=== PATIENT | male | born 1965 | race Caucasian/White ===

== ENCOUNTER → 2016-06-13 | Outpatient (CLI) | payer MEDICAID ==
[~2016-06-13] MED LIST: ADVA500A INH; ALBU6.7H INH; CETI10 PO; EPIN1INJ19; IBUP800T23 PO; IPRASOL INH; PRED1 PO; PRIL20CA9 PO; PRIL40CA PO; SPIRCAP INH; SPIRIVA; VITA1000 PO; ZOVI5CRE3 TOPICAL
--- NOTE | 2016-06-13 17:48 | RADRPT ---
EXAM DATE/TIME: 06/13/2016 13:38 [place] COMPARISON: No previous studies available for comparison. INDICATIONS : Short of breath. MEDICAL HISTORY : Chronic obstructive pulmonary disease. SURGICAL HISTORY : None. ENCOUNTER: Initial ACUITY: >1 year PAIN SCORE: 0/10 LOCATION: Bilateral upper chest FINDINGS: PA and lateral views of the chest demonstrate a normal-sized cardiac silhouette. There is no effusion , consolidation, or pneumothorax. The bones and soft tissues demonstrate no acute abnormality. There are degenerative changes of the thoracic spine. CONCLUSION: No acute cardiopulmonary abnormality is identified. Chidi Chaidez MD on June 13, 2016 at 17:46 Board Certified Radiologist. This report was verified electronically.
--- NOTE | 2016-06-27 09:35 | RSPPFT ---
DATE OF PROCEDURE: 06/13/16 COMMENTS: Spirometry with FVC of 2.2, FEV1 of 1.2, FEV1/FVC ratio at 53%. The total lung capacity is 106% of predicted. Diffusion capacity was not performed. There is a non-significant response to acutely inhaled bronchodilator. IMPRESSION: 1. Moderately severe airways obstruction. 2. Non-significant response to acutely inhaled bronchodilator. 3. No evidence of airways restriction.
== END ==
LOC: HRSP 12:12
PROVIDERS: ATTEND Internal Medicine Sleep Medicine
DX: R06.89 Other abnormalities of breathing (principal)
CPT/HCPCS: 71020; 94060; 94726